=== PATIENT | female | born 1995 | race Caucasian/White ===

== ENCOUNTER 2020-04-20 18:24 | Emergency (ER) | payer OTHER ==
[~2020-04-20] VITALS: Ht 160 cm; Wt 68.0 kg
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
[2020-04-20] MEDS ORDERED: TRAMADOL HCL 50 MG TABLET ONE (20:28)
[2020-04-20] MEDS ORDERED: TRAMADOL HCL 50 MG TABLET PO ONE (20:30)
[2020-04-20] MEDS ORDERED: MORPHINE SULFATE INJ 4 MG/ML DISP.SYRIN ONE (21:34)
[2020-04-20] MEDS ORDERED: ONDANSETRON 4 MG TAB.RAPDIS ONE (21:34)
[2020-04-20] MEDS ORDERED: MORPHINE SULFATE INJ 2 MG/ML DISP.SYRIN IM ONE (22:00)
[2020-04-20] MEDS ORDERED: ONDANSETRON 4 MG TAB.RAPDIS PO ONE (22:00)
--- NOTE | 2020-04-20 22:10 | NUR ---
Patient discharged to home in stable condition. Written and verbal after care instructions given. Patient verbalizes understanding of instruction. Pt ambulatory with a steady gait
[2020-04-20 23:48] VITALS: BP 143/75
== END 2020-04-20 22:10 | disposition home or self-care (01) ==
LOC: ER 18:27
DX: S00.11XA Contusion of right eyelid and periocular area, initial encounter (principal); V49.09XA Driver injured in collision with other motor vehicles in nontraffic accident, initial encounter; Y93.89 Activity, other specified; Y92.413 State road as the place of occurrence of the external cause; Y99.8 Other external cause status
CPT/HCPCS: 70450; 70486; 72125; 84703; 96372; 99285; J2270; L0172; Q0162